=== PATIENT | female | born 1995 | race Caucasian/White ===

== ENCOUNTER 2021-07-14 16:43 | Emergency (ER) | payer OTHER, SELFPAY ==
--- NOTE | ~2021-07-14 | XR_ITS ---
XR chest 2V DATE: 07/14/2021 18:16 INDICATION: Chest tightness, dyspnea TECHNIQUE: 2 views COMPARISON: 11/18/2020 PA chest FINDINGS: Normal heart size. No hilar or mediastinal enlargement. No pulmonary infiltrate or consolid ation, pleural effusion or pulmonary vascular congestion or pneumothorax. IMPRESSION: No active cardiopulmonary disease Reviewed, dictated and finalized at location A.
--- NOTE | 2021-07-14 16:52 | ECG_ITS ---
Measurements Intervals [place] Rate: 91 P: 62 WI: 148 QRS: 46 QRSD: 86 T: 47 QT: 334 QTc: 413 Interpretive Statements SINUS RHYTHM BASELINE ARTIFACT- III NORMAL ECG Electronically Signed On 07-14-2021 20:03:19 CDT by Santiago Negrete D.O.
[2021-07-14 16:55] VITALS: BP 145/96; PULSE 87; RESP 20; TEMP 36.8; O2SAT 98
--- NOTE | 2021-07-14 16:57 | ED.SOB ---
HPI - SOB/Dyspnea General Chief Complaint: Chest Pain Stated Complaint: trouble breathing, pain in stomach,fast heart rate Time Seen by Provider: 07/14/21 17:05 Source: patient Mode of arrival: ambulatory Limitations: no limitations History of Present Illness HPI Narrative: 26-year-old woman comes in today complaining of several days of rapid heartbeat associated with some mild shortness of breath and episodes epigastric pain associated with some mild nausea. She states the symptoms are not related to eating and she has had no cough or cold symptoms, vomiting, lightheadedness, syncope, diarrhea, fever, chills, dysuria. she denies prior similar symptoms. MD elicited complaint: chest pain Onset (ago): day(s) (3) Timing: intermittent Severity: moderate Exacerbating factors: nothing Relieving factors: nothing Treatment prior to arrival: none Related Data Home oxygen amount: none Allergies Allergy/AdvReac Type Severity Reaction Status Date / Time No Known Allergies Allergy Verified 07/14/21 17:07 Review of Systems Review of Systems: All systems reviewed & are unremarkable except as noted in HPI and below Constitutional: Constitutional: Denies chills and Denies fever(s) Eyes: Eyes: Denies change in vision and Denies photophobia ENT: Denies dysphagia, Denies nasal congestion and Denies sore throat Cardiovascular: Cardiovascular: Denies chest pain and Denies radiating jaw, neck or arm pain Respiratory: Respiratory: Denies chest congestion, Denies cough, Reports dyspnea and Reports wheezing ( Sometimes) Gastrointestinal: Gastrointestinal: Denies abdominal pain, Denies diarrhea, Reports nausea and Denies vomiting Integumentary/Breasts: Skin/Breast: Denies pruritus, Denies erythema and Denies rash Neurologic: Denies vertigo, Denies dizziness and Denies syncope Hematologic/Lymphatic: Hematologic/Lymphatic: Denies easy bleeding and Denies easy bruising Allergic/Immunologic: Allergic/Immunologic: Denies lip swelling and Denies throat swelling PMFSH Past Medical History Medical History (Updated 07/14/21 @ 19:22 by Gordo Ford MD) Asthma as a child Social History Social History (Updated 07/14/21 @ 19:21 by Gordo Ford MD) Smoking status: Never smoker Alcohol intake: current Alcohol use details: drinks approx. 5 days per week Substance use: never Exam Const: General: healthy appearing, no acute distress and alert Orientation/consciousness: patient oriented x3 Limitations: no limitations HENMT: Head: normal to inspection Ears: external ears normal, TM's normal bilaterally and EAC's normal General nose exam: Normal nares present Face and sinus: normal facial exam Mouth: Yes moist mucous membranes Throat: posterior oropharynx normal Eyes: Conjunctivae: conjunctivae normal Pupils: Equal, round and reactive pupils present EOM: EOMs intact bilaterally Resp: Effort & Inspection: normal respiratory effort and not labored Auscultation: clear to auscultation bilaterally, no rales, no rhonchi and no wheezes Cardio: Rate: regular rate Rhythm: regular rhythm Heart sounds: no murmurs GI: GI Palp: Yes Soft to palpation, No Tenderness to palpation present (GI), No Guarding due to palpation present (GI) and No Palpable mass present Auscultation: normal bowel sounds Skin: General skin exam: normal color, no jaundice and no pallor Rashes: no rashes Neuro: General: patient oriented x3, moves all extremities, no focal motor deficits and CN's II-XI intact bilaterally Speech: normal speech Gait exam (Neuro): Normal gait present Extrem: General: normal to inspection and no clubbing, cyanosis or edema Psych: Mental Status: mental status grossly normal Affect: normal affect Attitude: cooperative Thought content: Yes Normal thought content present Course Vital Signs Vital signs: Vital Signs Temperature 36.8 C 07/14/21 16:55 Pulse Rate 87 07/14/21 16:55 Respiratory Rate 20
[2021-07-14 17:10] VITALS: PULSE 85
[2021-07-14 17:38] LABS: Basophils Absolute Auto 0.04 K/mm3 (0.00-0.10); Basophils Percent Auto 0.4 % (0.0-1.0); Eosinophils Absolute Auto 0.07 K/mm3 (0.02-0.50); Eosinophils Percent Auto 0.7 % (1.0-6.0); Hematocrit 42.9 % (35.0-49.0); Hemoglobin 14.6 g/dL (12.0-15.0); Immature Granulocyte Absolute 0.05 K/mm3 (0.00-0.00); Immature Granulocyte Percent A 0.5 % (0.0-0.0); Lymphocytes Absolute Auto 2.26 K/mm3 (1.10-4.50); Lymphocytes Percent Auto 23.4 % (18.0-42.0); Mean Corpuscular Hemoglobin 29.5 pg (27.0-31.0); Mean Corpuscular Volume 86.7 fL (78.0-102.0); Mean Platelet Volume 8.7 fl (9.2-11.8); Monocytes Absolute Auto 0.68 K/mm3 (0.10-0.90); Neutrophils Absolute Auto 6.6 K/mm3 (1.7-7.2); Platelet Count Result 261 K/mm3 (150-420); Red Blood Count 4.95 M/mm3 (4.20-5.40); Red Cell Distribution Width 12.7 % (11.6-14.4); White Blood Count 9.7 K/mm3 (4.8-10.8)
[2021-07-14 17:51] LABS: Pregnancy On Board Control Positive; Urine Pregnancy Test Negative
[2021-07-14 17:54] LABS: D Dimer 0.19 mg/L (0.19-0.50)
[2021-07-14 17:58] LABS: Alanine Aminotransferase 87 U/L (14-59); Albumin Level 4.4 g/dL (3.4-5.0); Alkaline Phosphatase 137 U/L (46-116); Anion Gap 17 mmol/L (8-16); Aspartate Amino Transferase 100 U/L (15-37); Bilirubin,Total 0.8 mg/dL (0.00-1.00); Blood Urea Nitrogen 7 mg/dL (7-18); Calcium 9.1 mg/dL (8.5-10.1); Carbon Dioxide 20 mmol/L (21-32); Chloride 101 mmol/L (98-108); Estimated CRCL calculation 63 ml/min; Estimated Glomerular Filt Rate 55; Glucose 103 mg/dL (70-99); Osmolality Calculated 284 mOsm/kg (285-295); Potassium 3.2 mmol/L (3.5-5.1); Sodium 138 mmol/L (136-145); Total Protein 8.4 g/dL (6.4-8.2)
[2021-07-14 18:14] LABS: Lipase 56 U/L (73-393)
[2021-07-14 18:26] LABS: SARS-CoV-2 RNA PCR Negative (Negative)
--- NOTE | 2021-07-14 19:38 | PC.NURSE ---
1929 NITRO #1 GIVEN PAIN 01/18 B/P 157/78 PULSE 70 1934 CP
[2021-07-14 19:42] VITALS: BP 148/100; PULSE 101; RESP 20; O2SAT 100
== END 2021-07-14 19:44 | disposition home or self-care (01) ==
PROVIDERS: Emergency Provider Emergency Medicine
DX: R10.13 Epigastric pain (principal); R94.5 Abnormal results of liver function studies; R00.2 Palpitations; E87.6 Hypokalemia; Z20.822 Contact with and (suspected) exposure to COVID-19
CPT/HCPCS: 36415; 71046; 80053; 81025; 83690; 84484; 85025; 85380; 93005; 99283; 99284; C9803; U0003; U0005

== ENCOUNTER 2021-07-16 13:43 | Outpatient (CLI) | payer OTHER, SELFPAY ==
--- NOTE | ~2021-07-16 | US_ITS ---
EXAMINATION: US abdomen limited EXAM DATE: 07/16/2021 14:01 INDICATION: R10.13 - Epigastric pain TECHNIQUE: Multiple grayscale and Doppler images of the abdomen right upper quadrant were obtained (b y a technologist who performed the scan) and subsequently reviewed. There is no prior study for marko booker. FINDINGS: The pancreatic head and body are normal in appearance. The pancreatic tail is not visualized. There is echogenic liver parenchyma, hepatic steatosis. There are no focal liver lesions identified. Th ere is no evidence of intrahepatic biliary duct dilation. Portal venous flow was seen in the hepatop edal, normal direction and has normal Doppler waveform. No right-sided hydronephrosis. Common bile duct measures 3 mm, which is normal. The gallbladder wall is normal in thickness, with ex pected amount of distention. No sonographic evidence of pericholecystic fluid. There is no cholelit hiases. Technologist performing exam reports patient did not demonstrate sonographic Germain's sign. Please note that this sign is less reliable in patients who have received pain medication. IMPRESSION: 1. Hepatic steatosis. Reviewed, dictated and finalized at location A. IMPRESSION: 1. Hepatic steatosis.
== END 2021-07-16 13:44 | disposition home or self-care (01) ==
LOC: CHSIMG 13:46
PROVIDERS: Visit Provider Emergency Medicine
DX: R10.13 Epigastric pain (principal); R79.89 Other specified abnormal findings of blood chemistry
CPT/HCPCS: 76705

== ENCOUNTER 2021-08-11 08:49 | Outpatient (CLI) | payer OTHER, SELFPAY ==
[2021-08-11 09:36] LABS: Alanine Aminotransferase 82 U/L (14-59); Albumin Level 3.9 g/dL (3.4-5.0); Alkaline Phosphatase 129 U/L (46-116); Anion Gap 16 mmol/L (8-16); Aspartate Amino Transferase 65 U/L (15-37); Bilirubin,Total 0.7 mg/dL (0.00-1.00); Blood Urea Nitrogen 15 mg/dL (7-18); Carbon Dioxide 20 mmol/L (21-32); Chloride 104 mmol/L (98-108); Cholesterol 228 mg/dL (0-200); Estimated Glomerular Filt Rate > 60; Glucose 98 mg/dL (70-99); HDL Direct 47 mg/dL (40-60); LDL Cholesterol Calculated 135 mg/dL (<130); Osmolality Calculated 290 mOsm/kg (285-295); Potassium 3.9 mmol/L (3.5-5.1); Sodium 140 mmol/L (136-145); Total Protein 7.4 g/dL (6.4-8.2); Triglycerides 231 mg/dL (0-150)
== END 2021-08-11 08:50 | disposition home or self-care (01) ==
LOC: CHSLAB 08:51
PROVIDERS: PCP Nurse Practitioner Family; Visit Provider Nurse Practitioner Family
DX: R79.89 Other specified abnormal findings of blood chemistry (principal); Z00.00 Encounter for general adult medical examination without abnormal findings
CPT/HCPCS: 36415; 80053; 80061

== ENCOUNTER 2021-08-25 15:44 | Outpatient (NON) | payer OTHER, SELFPAY | END 2021-08-25 15:45 | disposition home or self-care (01) | LOC: CHSLAB 15:46 | PROVIDERS: PCP Nurse Practitioner Family; Visit Provider Nurse Practitioner Family | DX: Z12.4 Encounter for screening for malignant neoplasm of cervix (principal); Z13.89 Encounter for screening for other disorder | CPT/HCPCS: 87491; 87591; 88175; G0145 ==

== ENCOUNTER 2021-09-08 16:29 | Outpatient (CLI) | payer OTHER, SELFPAY ==
[2021-09-08 17:21] LABS: Alanine Aminotransferase 86 U/L (14-59); Albumin Level 4.2 g/dL (3.4-5.0); Alkaline Phosphatase 115 U/L (46-116); Aspartate Amino Transferase 124 U/L (15-37); Bilirubin Direct 0.1 mg/dL (0-0.2); Bilirubin,Total 0.4 mg/dL (0.00-1.00); Total Protein 7.6 g/dL (6.4-8.2)
== END 2021-09-08 16:30 | disposition home or self-care (01) ==
LOC: CHSLAB 16:31
PROVIDERS: PCP Nurse Practitioner Family; Visit Provider Nurse Practitioner Family
DX: R79.89 Other specified abnormal findings of blood chemistry (principal)
CPT/HCPCS: 36415; 80076

== ENCOUNTER 2023-03-01 10:00 | Emergency (ER) | payer SELFPAY ==
[2023-03-01 10:20] VITALS: BP 138/89; PULSE 100; RESP 16; TEMP 36.6; O2SAT 99
--- NOTE | 2023-03-01 10:24 | ED.URI ---
HPI - URI/Sore Throat General Chief Complaint: Upper Respiratory Infection Stated Complaint: SORE THROAT/FLUID IN EAR Time Seen by Provider: 03/01/23 10:23 Source: patient and RN notes reviewed Mode of arrival: ambulatory Limitations: no limitations History of Present Illness HPI Narrative: 28-year-old female presents with concern for sore throat, nasal congestion, ears feeling clogged, cough. Reports symptoms started 5 days ago. Reports she has been taking [id number] medications without relief. She denies fever, aches, chills, sweats. MD elicited complaint: cough, sore throat and nasal congestion Related Data Allergies Allergy/AdvReac Type Severity Reaction Status Date / Time No Known Allergies Allergy Verified 01/19/23 14:19 Review of Systems Review of Systems: CONSTITUTIONAL: Denies malaise, chills, sweats, or fever. EYES: Denies visual changes, redness, or discharge. ENT: Reports rhinorrhea, congestion, otalgia and sore throat. CARDIOVASCULAR: Denies chest pain, palpitations, or edema. RESPIRATORY: Reports cough. Denies dyspnea. GASTROINTESTINAL: Denies abdominal pain, nausea, vomiting, diarrhea SKIN: Denies rash or itching. MUSCULOSKELETAL: Denies myalgia. NEUROLOGIC: Denies headache. All systems reviewed & are unremarkable except as noted in HPI and below PMFSH Past Medical History Medical History Asthma as a child Social History Social History Smoking status: Never smoker Alcohol intake: current Alcohol use details: drinks approx. 2 days per week Substance use: never Lack of Transportation: No Lack of Food: Never True Current Housing: I Have Housing Concerned About Future Housing: No Difficulty Paying Gas/Electric Bills: No Difficulty Paying for Meds: No Currently Unemployed: No Education: High School Diploma/GED Difficulty w/ Childcare or Family Care: No Comments At time of signature, agree with nursing past medical, surgical, social and family history. There is no relevant family history pertinent to the presenting complaint Exam Narrative: GENERAL: Well-appearing, well-nourished, and in no acute distress. HEAD: Normocephalic EYES: PERRLA, conjunctivae clear ENT: Nares clear, turbinates edematous and erythematous, clear discharge. Mucous membranes moist. TM pearly rios with dull light reflex bilaterally; no tragal tenderness. Oropharynx not erythematous without lesions. Tonsils not enlarged and without exudate, no drooling, no hoarseness, no trismus, uvula midline. NECK: Supple. No lymphadenopathy CHEST: Clear to auscultation, breath sounds equal. No wheezing, rhonchi, rales, or stridor. No respiratory distress, speaks in full sentences. HEART: Regular rate and rhythm. No murmur heard. SKIN: Warm, dry, no rash. NEURO: Alert and oriented x3. PSYCH: Normal mood and affect Course Course Emergency Course: Patient is aware of diagnosis, understands and agrees to treatment plan. Anticipatory guidance given. Patient agrees to follow-up as directed and is aware of reasons to seek care at the emergency department. Portions of this record may have been created with voice recognition software Level of Care: Express Care Visit Vital Signs Vital signs: Vital Signs Temperature 98 F 03/01/23 10:20 Pulse Rate 100 03/01/23 10:20 Respiratory Rate 16 03/01/23 10:20 Blood Pressure 138/89 03/01/23 10:20 Pulse Oximetry 99 03/01/23 10:20 Temperature 98 F 03/01/23 10:20 Pulse Rate 100 03/01/23 10:20 Respiratory Rate 16 03/01/23 10:20 Blood Pressure 138/89 03/01/23 10:20 Pulse Oximetry 99 03/01/23 10:20 Reviewed. MDM - URI/Sore Throat MDM Narrative Medical decision making narrative: Differential diagnosis considered: Thomas virus, strep pharyngitis, allergic rhinitis, upper respiratory tract infection, sinusitis, rhinosinu
== END 2023-03-01 10:36 | disposition home or self-care (01) ==
PROVIDERS: Emergency Provider Nurse Practitioner; PCP Nurse Practitioner Family
DX: J06.9 Acute upper respiratory infection, unspecified (principal)
CPT/HCPCS: 87081; 87880; 99213; G0463

== ENCOUNTER 2023-04-16 02:59 | Emergency (ER) | payer SELFPAY | END 2023-04-16 15:50 | disposition home or self-care (01) | LOC: EXPGOSH 04-19 15:41 | PROVIDERS: Emergency Provider Nurse Practitioner Family | DX: K08.89 Other specified disorders of teeth and supporting structures (principal); I10 Essential (primary) hypertension | CPT/HCPCS: 99213; G0463 ==

== ENCOUNTER 2023-06-13 16:30 | Emergency (ER) | payer SELFPAY ==
[2023-06-13 16:31] VITALS: BP 132/93; PULSE 84; RESP 18; TEMP 37.1; O2SAT 98
--- NOTE | 2023-06-13 16:39 | ED.SKABFB ---
HPI - Skin/Abscess/Foreign Bdy General Chief complaint: Skin/Abscess/Foreign Body Stated complaint: bite/nose Time Seen by Provider: 06/13/23 16:31 Source: patient Mode of arrival: ambulatory Limitations: no limitations History of Present Illness HPI narrative: patient is a 28-year-old female with a spider bite on the tip of the nose just prior to arrival. She has pain in this area. complaint: insect bite/sting Onset (ago): minute(s) Location: face ( Tip of nose) Severity: mild Severity scale (1-10): 4 Quality: sharp Pain Consistency: constant Relieving factors: none Exacerbating factors: none Context: none Associated symptoms: denies other symptoms Treatments prior to arrival: none Related Data Allergies Allergy/AdvReac Type Severity Reaction Status Date / Time No Known Allergies Allergy Verified 06/13/23 16:53 Review of Systems Review of Systems: All systems reviewed & are unremarkable except as noted in HPI and below Constitutional: Constitutional: Reports no additional constitutional complaints Eyes: Eyes: Reports no additional eye complaints ENT: Reports system reviewed and no additional complaints, except as documented Cardiovascular: Cardiovascular: Reports no additional cardiovascular complaints Respiratory: Respiratory: Reports no additional respiratory complaints Gastrointestinal: Gastrointestinal: Reports no additional gastrointestinal complaints Genitourinary: Genitourinary: Reports no additional female genitourinary complaints Musculoskeletal: Musculoskeletal: Reports no additional musculoskeletal complaints Integumentary/Breasts: Skin/Breast: Reports system reviewed and no additional complaints, except as docu Neurologic: Reports system reviewed and no additional complaints, except as documented Psychiatric: Psychiatric: Reports no additional psychiatric complaints Endocrine: Endocrine: Reports no additional endocrine complaints Hematologic/Lymphatic: Hematologic/Lymphatic: Reports no additional hematologic/lymphatic complaints Allergic/Immunologic: Allergic/Immunologic: Reports no additional allergic/immunologic complaints [facility] Past Medical History Medical History Asthma as a child Social History Social History Smoking status: Never smoker Alcohol intake: current Alcohol use details: drinks approx. 2 days per week Substance use: never Lack of Transportation: No Lack of Food: Never True Current Housing: I Have Housing Concerned About Future Housing: No Difficulty Paying Gas/Electric Bills: No Difficulty Paying for Meds: No Currently Unemployed: No Education: High School Diploma/GED Difficulty w/ Childcare or Family Care: No Exam Const: General: healthy appearing Nutritional Appearance: well nourished Orientation/consciousness: patient oriented x3 HENMT: Head: normal to inspection Ears: external ears normal Mouth: Yes Normal oral and palatal mucosa present Eyes: Conjunctivae: conjunctivae normal Pupils: Equal, round and reactive pupils present EOM: EOMs intact bilaterally Neck: Neck: normal visual inspection Chest: Chest palpation & inspection: normal inspection of the chest Resp: Effort & Inspection: normal respiratory effort Auscultation: clear to auscultation bilaterally and no crackles Cardio: Rate: regular rate Rhythm: regular rhythm Heart sounds: no murmurs GI: Inspection: non-distended Auscultation: normal bowel sounds : General: Yes bladder normal to palpation Back/Spine/Pelvis: Back: no CVA tenderness Skin: General skin exam: normal color Wounds: no wounds Other: tip of nose has a small nidus of insect bite with localized redness from inflammation but not infection as this just occurred minutes ago Neuro: General: patient oriented x3 Cranial nerves: Yes Nystagmus not present Speech: normal spee
[2023-06-13] MEDS: KETOROLAC (*BKC) 60 MG/2 ML VIAL IM (17:01)
[2023-06-13 17:06] VITALS: BP 128/88; PULSE 86; RESP 16; O2SAT 97
[2023-06-13 18:07] VITALS: BP 107/85; PULSE 89; RESP 18; TEMP 36.6; O2SAT 100
== END 2023-06-13 18:10 | disposition home or self-care (01) ==
PROVIDERS: Emergency Provider Emergency Medicine; PCP Nurse Practitioner Family
DX: S00.36XA Insect bite (nonvenomous) of nose, initial encounter (principal); W57.XXXA Bitten or stung by nonvenomous insect and other nonvenomous arthropods, initial encounter
CPT/HCPCS: 96372; 99283; J1885

== ENCOUNTER 2025-01-24 07:29 | Outpatient (CLI) | payer SELFPAY ==
--- OUTSIDE RECORDS SUMMARY | 2025-01-24 07:33 | XMS_ITS | Clinical Summary ---
Author Organization [facility] Address [address] [place] [address] Care Team Providers Care Human Factors Specialist Name Role Phone No, Physician Primary Care Provider [phone] Allergies No known active allergies Medications fluticasone (FLONASE) 50 mcg/actuation nasal spray inhale 1 spray by intranasal route every day in each nostril 1 Bottle 0 5 Active loratadine (CLARITIN) 5 mg/5 mL syrup 0 0 5 Active Active Problems Problem Noted Date Diagnosed Date Acute bacterial tonsillitis 10/08/2015 Overview (12/15/2016): Acute bacterial tonsillitis Acute sinusitis 08/05/2014 Overview (12/15/2016): Acute sinusitis Immunizations Immunization Administration Dates Next Due DTP 11/28/1997, 4,1993,1993,0 1993 HPV, Quadrivalent 05/10/2007 Hep A, Unspecified 07/25/2007 Hep B, Adolescent or Pediatric 07/05/1995,1992,1993 HiB 04/07/1996,07/08/1994,1993 ,1993 Influenza, Unspecified 07/25/2007 MMR 04/08/1997,02/09/1994 Meningococcal MCV4P (Menactra) 05/10/2007 OPV 11/28/1997,07/08/1994,1993 ,1993 Td, adsorbed 05/10/2007 Social History Tobacco Use Types Packs/Day Years Used Date Smoking Tobacco: Never Assessed Personal Safety Answer Date Recorded Getting School Help Needed Not on file 05/02 Comments Unknown Sex and Gender Information Value Date Recorded Sex Assigned at Not on file 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 Gender Identity Not on file Sexual Orientation Not on file Last Filed Vital Signs Vital Sign Reading Time Taken Comments Blood Pressure 108/58 12/17/2015 7:35 PM CDT Pulse 78 12/17/2015 7:35 PM CDT Temperature - - Respiratory Rate - - Oxygen Saturation 98% 12/17/2015 7:35 PM CDT Inhaled Oxygen Concentration - - Weight 60.7 kg (133 lb 12.8 oz) 12/17/2015 7:35 PM CDT Height 160 cm (5' 3 ) 12/17/2015 7:35 PM CDT Body Mass Index 23.7 12/17/2015 7:35 PM CDT Plan of Treatment Health Maintenance Due Date Last Done Comments Cervical Cancer Screening 1993 Depression Screening 1993 Hepatitis C Screening 1993 Varicella Vaccines (1 of 2 - 13+ 2-dose series) 2006 DTaP/Tdap/Td Vaccine (6 - Tdap) 05/11/2007 05/10/2007, 11/28/1997, 07/08/1994, Additional history exists HPV Vaccines (2 - 2-dose series) 11/09/2007 05/10/2007 Regular Well Visit/Exam 18-64 2011 Covid-19 Vaccine ( - season) 2024 12/10/2020 Influenza Vaccine (Season Ended) 2025 06/12/2019, 07/25/2007 Hepatitis B Screening Completed 07/05/1995 , 1993, 1993 Pneumococcal vaccine <65 Aged Out No longer eligible based on patient's age to complete this topic Care Teams Human Factors Specialist Relationship Specialty Start Date End Date No, Physician PCP - General 05/02/24
--- OUTSIDE RECORDS SUMMARY | 2025-01-24 07:33 | XMS_ITS | Referral Summary ---
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
--- NOTE | 2025-01-24 07:57 | ECG_ITS ---
Test Date: 2025-01-24 08:10:18 Measurements Intervals [place] Rate: 90 P: 75 [place]: 157 QRS: 70 QRSD: 87 T: 64 QT: 335 QTc: 412 Interpretive Statements SINUS RHYTHM NONSPECIFIC ST ABNORMALITY ABNORMAL ECG No previous ECG available for comparison Electronically Signed On 01-24-2025 10:00:58 CDT by Cuong Aguilar M.D.
[2025-01-24 08:02] LABS: Basophils Absolute Auto 0.05 K/mm3 (0.00-0.10); Basophils Percent Auto 0.6 % (0.0-1.0); Eosinophils Percent Auto 2.6 % (1.0-6.0); Hematocrit 40.2 % (35.0-49.0); Hemoglobin 12.8 g/dL (12.0-15.0); Immature Granulocyte Absolute 0.02 K/mm3 (0.00-0.00); Immature Granulocyte Percent A 0.3 % (0.0-0.0); Lymphocytes Absolute Auto 2.76 K/mm3 (1.10-4.50); Lymphocytes Percent Auto 35.5 % (18.0-42.0); Mean Corpuscular HGB Conc 31.8 g/dL (32-36); Mean Corpuscular Hemoglobin 25.6 pg (27.0-31.0); Mean Corpuscular Volume 80.4 fL (78.0-102.0); Mean Platelet Volume 8.5 fl (9.2-11.8); Monocytes Absolute Auto 0.44 K/mm3 (0.10-0.90); Monocytes Percent Auto 5.7 % (2.0-11.0); Neutrophils Absolute Auto 4.31 K/mm3 (1.70-7.20); Neutrophils Percent Auto 55.3 % (50.0-70.0); Platelet Count Result 321 K/mm3 (150-420); Red Cell Distribution Width 14.4 % (11.6-14.4); White Blood Count 7.8 K/mm3 (4.8-10.8)
[2025-01-24 08:44] LABS: Alanine Aminotransferase 17 U/L (6-35); Albumin Level 4.1 g/dL (3.5-5.1); Alkaline Phosphatase 70 U/L (38-126); Anion Gap 9 mmol/L (4-12); Aspartate Amino Transferase 28 U/L (14-36); Bilirubin,Total 0.6 mg/dL (0.2-1.3); Blood Urea Nitrogen 8 mg/dL (7-17); Calcium 9.4 mg/dL (8.4-10.2); Carbon Dioxide 20 mmol/L (22-30); Chloride 110 mmol/L (98-107); Estimated Glomerular Filt Rate > 60; Glucose 94 mg/dL (65-110); Iron 61 ug/dL (37-170); Osmolality Calculated 286 mOsm/kg (285-295); Potassium 3.7 mmol/L (3.4-5.0); Sodium 139 mmol/L (137-145); Total Protein 6.8 g/dL (6.3-8.2)
[2025-01-24 09:01] LABS: Free T4 Free Thyroxine 1.47 ng/dL (0.78-2.19)
[2025-01-26 02:49] LABS: Total Triiodothyronine (T3) 91 ng/dL (76-181); Vitamin D 25 Hydroxy 29 ng/mL (30-100)
== END 2025-01-24 07:30 | disposition home or self-care (01) ==
PROVIDERS: PCP Nurse Practitioner Family; Visit Provider Nurse Practitioner Family
DX: I10 Essential (primary) hypertension (principal); R63.4 Abnormal weight loss; Z79.899 Other long term (current) drug therapy; R00.0 Tachycardia, unspecified; R94.31 Abnormal electrocardiogram [ECG] [EKG]
CPT/HCPCS: 36415; 80053; 82306; 83540; 84439; 84443; 84480; 85025; 93005

== ENCOUNTER 2025-02-12 15:03 | Outpatient (CLI) | payer SELFPAY ==
--- OUTSIDE RECORDS SUMMARY | 2025-02-12 15:09 | XMS_ITS | Clinical Summary ---
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
--- OUTSIDE RECORDS SUMMARY | 2025-02-12 15:09 | XMS_ITS | Referral Summary ---
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
[2025-02-12 16:07] LABS: Beta HCG Quantitative < 2.39 mIU/ML
== END 2025-02-12 15:04 | disposition home or self-care (01) ==
PROVIDERS: PCP Nurse Practitioner Family; Visit Provider Nurse Practitioner Family
DX: Z32.00 Encounter for pregnancy test, result unknown (principal)
CPT/HCPCS: 36415; 84702